=== PATIENT | female | born 1950 | race Caucasian/White ===

== ENCOUNTER 2019-09-06 06:45 | Inpatient (IN) ==
--- NOTE | 2019-08-29 10:00 | EKG Report ---
Test Performed on : 08/29/2019 09:54:34 AM Test Reason : PAT Blood Pressure : / mmHG Vent. Rate : 077 BPM Atrial Rate : 077 BPM P-R Int : 150 ms QRS Dur : 088 ms QT Int : 376 ms P-R-T Axes : 045 028 034 degrees QTc Int : 425 ms Normal sinus rhythm. Normal ECG No previous ECGs available Unconfirmed Result
[2019-08-29 12:00] LABS: URINE SOURCE CLEAN CATCH
[2019-08-29 12:06] LABS: BASO# 0.04 X1000 (0.0-0.2); BASO% 0.7 % (0.0-0.8); EOS# 0.12 X1000 (0.0-0.7); HEMATOCRIT 40.6 % (37.0-47.0); HEMOGLOBIN 13.4 g/dL (12.0-16.0); IMM GRAN# 0.02 X1000 (0.0-0.04); IMM GRAN% 0.3 % (0.0-0.5); LYMPH# 1.95 X1000 (1.2-3.4); LYMPH% 32.3 % (20.5-51.1); MCH 29.9 PG (27-31); MCV 90.6 FL (81-99); MONO% 6.6 % (1.7-9.3); MPV 10.7 FL (7.4-10.4); NEUT% 58.1 % (42.2-75.2); PLT 382 X1000 (130-400); RBC 4.48 XMIL (4.2-5.4); RDW 12.7 % (11.5-14.5); WBC 6.03 X1000 (4.8-10.8)
[2019-08-29 12:11] LABS: BILIRUBIN URINE NEGATIVE (NEGATIVE); BLOOD URINE NEGATIVE (NEGATIVE); COLOR YELLOW; GLUCOSE URINE NEGATIVE (NEGATIVE); KETONE URINE NEGATIVE (NEGATIVE); LEUKOCYTES URINE SMALL (NEGATIVE); NITRITE URINE NEGATIVE (NEGATIVE); PH URINE 6.5; PROTEIN URINE NEGATIVE (NEGATIVE); SP GRAVITY URINE 1.019; TURBIDITY URINE CLEAR (CLEAR); UROBILINOGEN URINE NORMAL (NORMAL)
[2019-08-29 12:13] LABS: INR 0.92; PROTIME 12.5 Seconds (11.0-16.0); UR EPITHELIAL CELLS <10 /HPF (<10); URINE BACTERIA NEGATIVE /HPF; URINE RBC <10 /HPF (<10)
[2019-08-29 12:14] LABS: PTT 30.8 Seconds (22.3-41.8)
[2019-08-29 12:28] LABS: HEMOGLOBIN A1C 5.4 % (4.8-6.0)
[2019-08-29 12:37] LABS: AGAP 13; ALBUMIN 4.3 g/dL (3.5-5.0); BUN 20 mg/dL (8-22); CHLORIDE 99 mmol/L (98-107); COSMO 276; CREATININE 0.9 mg/dL (0.5-0.9); ESTIMATED GFR > 60; GLUCOSE 88 mg/dL (70-104); SODIUM 137 mmol/L (136-145); TCO2 25 mmol/L (25-35)
[2019-09-06] MEDS ORDERED: PEPCID ONE (07:14)
[2019-09-06] MEDS ORDERED: COLACE ONE (07:14)
[2019-09-06] MEDS ORDERED: REGLAN ONE (07:14)
[2019-09-06] MEDS ORDERED: LYRICA ONE (07:15)
[2019-09-06] MEDS ORDERED: KEFZOL 1 GM/D5W 2 GM/100 ML IVPB ONE (07:15)
[2019-09-06] MEDS ORDERED: LR 1,000 ML ONE (07:15)
[2019-09-06] MEDS ORDERED: DIPRIVAN 1% ONE ×3 (07:30→10:15)
[2019-09-06] MEDS ORDERED: ROBINUL ONE (07:30)
[2019-09-06] MEDS ORDERED: VERSED ONE (07:58)
[2019-09-06] MEDS ORDERED: FENTANYL ONE (08:02)
[2019-09-06] MEDS ORDERED: MARCAINE 0.25% PF ONE (08:12)
[2019-09-06] MEDS ORDERED: SODIUM CHLORIDE 0.9% ONE (08:13)
[2019-09-06] MEDS ORDERED: TORADOL ONE (08:13)
[2019-09-06] MEDS ORDERED: DURAMORPH ONE (08:13)
[2019-09-06] MEDS ORDERED: EXPAREL 1.3% ONE (08:13)
[2019-09-06] MEDS ORDERED: VANCOMYCIN ONE (08:13)
[2019-09-06] MEDS ORDERED: OFIRMEV 1000 MG/ISOTONIC SOLN 1,000 MG/100 ML BOTTLE ONE (09:07)
[2019-09-06] MEDS ORDERED: ZOFRAN ONE (09:07)
[2019-09-06] MEDS ORDERED: DECADRON ONE (09:07)
[2019-09-06] MEDS: CYKLOKAPRON 1,000 MG/NS 2,000 MG/200 ML IVPB ONE ×2 (09:15→10:08)
--- NOTE | 2019-09-06 11:17 | Diag Imaging Result Doc PS360 ---
EXAM: KNEE 1-2 VIEWS-LEFT 09/06/2019 HISTORY: L TKA TECHNIQUE: Left knee two views COMMENT: There is a total knee arthroplasty. There is no evidence of acute bony abnormality otherwise. IMPRESSION: Postsurgical changes. Electronically signed by Kranthi Duarte 09/06/2019 11:15 AM
[2019-09-06] MEDS ORDERED: NS 1,000 ML ONE (11:18)
[2019-09-06] MEDS ORDERED: ZOFRAN ODT PO PRN (11:45)
[2019-09-06] MEDS ORDERED: ZOFRAN IV PRN (11:45)
[2019-09-06] MEDS ORDERED: MORPHINE IV PRN ×2 (11:45)
[2019-09-06] MEDS: NS 1,000 ML IV SCH (12:00)
[2019-09-06 15:29] LABS: URINE SOURCE CLEAN CATCH
[2019-09-06 15:38] LABS: BILIRUBIN URINE NEGATIVE (NEGATIVE); BLOOD URINE NEGATIVE (NEGATIVE); COLOR YELLOW; GLUCOSE URINE 70 mg/dL (NEGATIVE); KETONE URINE NEGATIVE (NEGATIVE); LEUKOCYTES URINE NEGATIVE (NEGATIVE); NITRITE URINE NEGATIVE (NEGATIVE); PH URINE 6.5; PROTEIN URINE NEGATIVE (NEGATIVE); SP GRAVITY URINE 1.016; TURBIDITY URINE CLEAR (CLEAR); UROBILINOGEN URINE NORMAL (NORMAL)
[2019-09-06 15:39] LABS: UR EPITHELIAL CELLS <10 /HPF (<10); URINE BACTERIA NEGATIVE /HPF; URINE RBC <10 /HPF (<10); URINE WBC <10 /HPF (<10)
[2019-09-06] MEDS: KEFZOL 2 GM/D5W 2 GM/50 ML IVPB IV SCH (16:04)
[2019-09-06] MEDS: TYLENOL PO SCH ×2 (16:05→21:35)
[2019-09-06] MEDS: ULTRAM PO SCH ×2 (16:05→21:34)
--- NOTE | 2019-09-06 18:09 | OPERATIVE NOTE ---
PROCEDURE DATE: 09/06/2019 PREOPERATIVE DIAGNOSIS: Degenerative joint disease, left knee. POSTOPERATIVE DIAGNOSIS: Degenerative joint disease, left knee. PROCEDURE PERFORMED: Left total knee replacement. SURGEON: Arturo Huang MD. INTERN: MARTIN Odom. Mr. Bates was necessary for proper retraction and manipulation of the leg during the case. ANESTHESIA: Spinal. COMPLICATION: None. PROCEDURE IN DETAIL: This 69-year-old female presents for a left total knee replacement. Risks, benefits, and no guarantees were discussed and she is willing to proceed. She was taken to the operating room and satisfactory anesthesia obtained. The left leg was prepped and draped in usual sterile fashion. A time-out was taken to confirm operative site, procedure, and patient. The leg was wrapped with an Esmarch and tourniquet inflated to 350 mmHg. A midline incision was made over the front of the knee and care taken to maintain healthy lateral skin flaps and dissection carried down straight to the joint capsule. A medial quad tendon sparing arthrotomy was made. The patella was everted and resurfaced with freehand technique. The patella subluxed laterally. The knee was flexed. An intramedullary hole made in the distal femur and the distal femoral cutting block secured in 5 degrees of valgus. The distal femoral resection was made and sized to a [employer] size 5 femoral component. The 4-in-1 block was secured and the anterior, posterior, and chamfer cuts sequentially made with care taken to preserve collateral ligaments. Afterwards any remaining osteophytes were debrided about the femur. The PCL was retained and the knee flexed and a PCL retractor placed behind the tibia to protect the PCL and neurovascular bundle. The tibial cutting block was secured with extramedullary alignment and the tibial resection made. Flexion and extension gaps were equal with a 6 mm spacer block. Tibia was sized to a size 5 tibial tray. A trial reduction was performed with a size 5 tibial tray, a 6 mm CR spacer, and a size 5 cruciate retaining femoral component. Good range of motion and stability and soft tissue balance of the ligaments was noted. The patella was sized to a 35 medialized dome patella. The drill holes were placed for the patellar implant and femoral implant and the trial components removed. The bony surfaces were thoroughly irrigated with irrigant and then dried. Cement with a gram of vancomycin was then used to cement a DePuy size 5 rotating platform tibial base plate, a size 5 left cruciate retaining femoral component, standard width, and a 35 medialized dome patella. While the cement cured, the joint capsule was injected with Exparel for pain management. A Hemovac drain was placed. After curing of the cement, a size 5, 6 mm thick CR rotating platform poly was placed in the tibial tray and the knee reduced. Final range of motion was 0 to 120 degrees with midline patellar tracking. The arthrotomy was copiously irrigated and then closed over the drain with #1 Vicryl in the arthrotomy, 2-0 Vicryl in the subcutaneous, and skin juanjose. Sterile dressings completed the closure and the patient was recovered from anesthesia and transferred to the recovery room in stable condition. No intraoperative complications were noted. Instrument count and sponge count was correct at the time of closure. cc: Miguel Huang MD
[2019-09-06] MEDS: MORPHINE IV PRN (18:50)
[2019-09-06] MEDS: COLACE PO SCH (21:35)
[2019-09-06] MEDS: PERIDEX MT SCH (21:35)
--- NOTE | 2019-09-06 21:40 | ORTHOPAEDICS PROGRESS NOTE ---
DATE: 09/06/2019 SUBJECTIVE: Ms. Gonzales is seen status post total knee replacement. She is comfortable at the present time. OBJECTIVE: Bandage is clean and dry. She appears to be motor and sensory intact. ASSESSMENT/PLAN: We will plan on mobilizing her and discharge her home when she is mobilizing well with therapy. cc: Miguel Huang MD
[2019-09-07] MEDS: NS 1,000 ML IV SCH (00:45)
[2019-09-07] MEDS: KEFZOL 2 GM/D5W 2 GM/50 ML IVPB IV SCH (00:45)
[2019-09-07] MEDS: TYLENOL PO SCH ×2 (03:26→09:16)
[2019-09-07] MEDS: ULTRAM PO SCH ×2 (03:26→09:17)
[2019-09-07] MEDS: MORPHINE IV PRN (06:43)
[2019-09-07 06:45] LABS: HEMATOCRIT 34.8 % (37.0-47.0); HEMOGLOBIN 11.5 g/dL (12.0-16.0)
[2019-09-07 06:58] LABS: AGAP 12; BUN 12 mg/dL (8-22); CALCIUM 8.9 mg/dL (8.8-10.2); CHLORIDE 98 mmol/L (98-107); COSMO 270; CREATININE 0.9 mg/dL (0.5-0.9); ESTIMATED GFR > 60; GLUCOSE 138 mg/dL (70-104); POTASSIUM 4.2 mmol/L (3.5-5.1); SODIUM 134 mmol/L (136-145); TCO2 24 mmol/L (25-35)
[2019-09-07] MEDS ORDERED: NON-FORMULARY MED (Meloxicam 15 MG) PO SCH (09:00)
[2019-09-07] MEDS ORDERED: CIPRO PO SCH (09:00)
[2019-09-07] MEDS ORDERED: PEPCID PO SCH (09:00)
[2019-09-07] MEDS ORDERED: ASPIRIN PO SCH (09:00)
[2019-09-07] MEDS ORDERED: MOBIC PO SCH (09:00)
[2019-09-07] MEDS ORDERED: DIFLUCAN PO SCH (09:00)
[2019-09-07] MEDS ORDERED: FLONASE NAS SCH (09:00)
[2019-09-07] MEDS ORDERED: PRILOSEC PO SCH (09:00)
[2019-09-07] MEDS: COLACE PO SCH (09:18)
[2019-09-07] MEDS: PERIDEX MT SCH (09:20)
--- NOTE | 2019-09-07 15:14 | ORTHOPAEDICS PROGRESS NOTE ---
DATE: 09/06/2019 SUBJECTIVE: Ms. Gonzales is seen today status post total knee replacement. At the present time, she is afebrile with stable vital signs. Bandage is clean and dry. We will plan on mobilizing her today. PLAN: She appears to be stable and can be discharged home. She will receive home therapy. She is to continue her regular medicines, as well as Dilaudid as needed for pain, ibuprofen as a supplement for pain, aspirin for DVT prophylaxis, doxycycline for antibacterial prophylaxis. We will see her back in roughly 12 days or sooner for any worsening signs or symptoms. cc: Miguel Huang MD
[2019-09-08 13:35] VITALS: BP 157/78
[2019-09-23] MEDS ORDERED: IMMUNE GLOBULIN IV SCH (12:30)
[2019-09-23] MEDS ORDERED: [UNRECOGNIZED DRUG - OTHER] IV SCH (12:30)
== END 2019-09-07 10:41 | disposition home health service (06) | DRG 470 ==
LOC: 4N 06:45 → PAT 06:45 → OPS 06:45 → OBSVTOIN 10:04
PROVIDERS: ADMIT Orthopaedic Surgery Adult Reconstructive Orthopaedic Surgery; ATTEND Orthopaedic Surgery Adult Reconstructive Orthopaedic Surgery